=== PATIENT | male | born 1970 | race Caucasian/White ===

== ENCOUNTER 2023-10-11 17:08 | Emergency (ER) | payer OTHER ==
[~2023-10-11] VITALS: Ht 182.9 cm; Wt 77.1 kg
[2023-10-11 17:17] VITALS: O2SAT 97
[2023-10-11 17:58] LABS: CARBON DIOXIDE 20 mmol/L (21-32); CHLORIDE 103 mmol/L (98-107); CREATININE 0.9 mg/dL (0.6-1.3); GLUCOSE 155 mg/dL (74-106); POTASSIUM 3.8 mmol/L (3.5-5.1); SODIUM SERUM 138 mmol/L (136-145); UREA NITROGEN, BLOOD 25 mg/dL (7-18)
[2023-10-11 18:00] LABS: BASOPHILS # (AUTO) 0.1 K/UL (0.0-0.2); BASOPHILS % (AUTO) 1.1 % (0.0-2.0); EOSINOPHILS # (AUTO) 0.1 K/uL (0.0-0.7); HEMATOCRIT 37.4 % (36.7-47.1); HEMOGLOBIN 12.6 g/dL (12.5-16.3); LYMPHOCYTES # (AUTO) 1.5 K/uL (0.8-4.8); LYMPHOCYTES % (AUTO) 22.2 % (20.5-51.5); MEAN CORPUSCULAR HEMOGLOBIN 30.2 uug (23.8-33.4); MEAN CORPUSCULAR HGB CONC 34 g/dL (32.5-36.3); MEAN CORPUSCULAR VOLUME 89.6 fL (73.0-96.2); MONOCYTES # (AUTO) 0.9 K/uL (0.1-1.30); MONOCYTES % (AUTO) 12.7 % (0.0-11.0); NEUTROPHILS # (AUTO) 4.2 K/uL (1.8-8.9); PLATELET COUNT (AUTO) 435 K/uL (152-348); RED BLOOD CELL COUNT(AUTO) 4.17 MIL/uL (4.06-5.63); RED CELL DISTRIBUTION WIDTH 12.5 % (12.1-16.2); WHITE BLOOD COUNT (AUTO) 6.7 K/uL (3.6-10.2)
[2023-10-11 18:06] LABS: AMMONIA < 10 umol/L (11-32); ETHANOL < 3 MG/DL (0-10)
[2023-10-11 18:14] LABS: ALANINE AMINOTRANSFERASE 28 U/L (16-63); ALBUMIN 3.7 g/dL (3.4-5.0); ALKALINE PHOSPHATASE 48 U/L (50-136); ASPARTATE AMINOTRANSFERASE 20 U/L (15-37); BILIRUBIN,DIRECT 0.1 mg/dL (0.0-0.2); BILIRUBIN,TOTAL 0.3 mg/dL (0.2-1.0); TOTAL PROTEIN, SERUM 6.6 g/dL (6.4-8.2)
[2023-10-11 18:15] LABS: ACETAMINOPHEN < 10.0 ug/mL (10-30)
[2023-10-11] MEDS ORDERED: ONDANSETRON 4 MG/2 ML VIAL IV ONE (18:30)
[2023-10-11 18:36] LABS: THYROID STIMULATING HORMONE 2.564 mIU/mL (0.358-3.740)
[2023-10-11] MEDS ORDERED: ONDANSETRON 4 MG/2 ML VIAL ONE (18:36)
[2023-10-11 19:06] LABS: *BILIRUBIN,URIN NEGATIVE (NEGATIVE); *BLOOD, URINE NEGATIVE (NEGATIVE); *COLOR,URINE YELLOW (YELLOW); *KETONES,URINE 2+ (NEGATIVE); *PROTEIN,URINE TRACE (NEGATIVE); *UROBILINOGEN,URINE 0.2 E.U./dl (NORMAL); LEUKOCYTE ESTERASE ,URINE NEGATIVE (NEGATIVE); NITRITE, URINE NEGATIVE (NEGATIVE); PH,URINE 5.5 (5.0-8.0); UGLUCOSE NEGATIVE (NEGATIVE)
[2023-10-11] MEDS ORDERED: ONDA4TAB5 PO (19:14)
[2023-10-11 19:23] LABS: *CLARITY,URINE CLEAR (CLEAR)
[2023-10-11 19:26] LABS: BACTERIA,URINE FEW /HPF (NONE SEEN); RBC,URINE 0-3 /HPF (0-3); SQUAMOUS EPITHELIAL CELL,UR FEW /HPF (NONE SEEN); WBC,URINE 0-3 /HPF (0-3)
[2023-10-11 19:28] LABS: *AMPHETAMINE, URINE NEGATIVE (NEGATIVE); *BARBITURATE, URINE NEGATIVE (NEGATIVE); *BENZODIAZEPINE, URINE NEGATIVE (NEGATIVE); *CANNABINOID, URINE NEGATIVE (NEGATIVE); *COCCAINE, URINE NEGATIVE (NEGATIVE); *OPIATE, URINE NEGATIVE (NEGATIVE); *PHENCYCLIDINE SCREEN,URINE NEGATIVE (NEGATIVE)
[2023-10-11 19:29] LABS: FENTANYL, URINE NEGATIVE (NEGATIVE)
== END 2023-10-11 20:14 | disposition home or self-care (01) ==
LOC: ER 17:08
DX: A41.89 Other specified sepsis (principal); R55 Syncope and collapse; E86.0 Dehydration
CPT/HCPCS: 36415; 70450; 71045; 72125; 83605; 84443; 84484; 85025; 85730; 87040; 93005; A4606; A4663; G0480; J2405

== ENCOUNTER 2023-10-12 15:38 | Emergency (ER) | payer OTHER ==
[~2023-10-12 15:38] MED LIST: ONDA4TAB5 PO
== END 2023-10-12 16:07 | disposition left against medical advice (07) ==
LOC: ER 15:44
DX: Z53.21 Procedure and treatment not carried out due to patient leaving prior to being seen by health care provider (principal)